=== PATIENT | male | born 1970 | race Caucasian/White ===

== ENCOUNTER 2018-02-22 08:12 | Emergency (ER) | payer OTHER ==
[2018-02-22] MEDS ORDERED: DIPHTH,PERTUSS(ACELL),TET 0.5 ML DISP.SYRIN IM ONE (08:16)
[2018-02-22] MEDS ORDERED: SODIUM BICARBONATE 2.4 MEQ/5 ML SDVIAL NR ONE (08:17)
[2018-02-22] MEDS ORDERED: SODIUM BICARBONATE 8.4% 50 MEQ/50 ML VIAL ONE (08:22)
[2018-02-22 08:38] VITALS: BP 125/88; PULSE 66; TEMP 98.5; BMI 25.6
--- NOTE | 2018-02-22 08:57 | PDOC ---
History of Present Illness - General Chief Complaint: Laceration Stated Complaint: LACERATION RIGHT ARM Time Seen by Provider: 02/22/18 08:16 History Source: Patient Exam Limitations: No Limitations - History of Present Illness Initial Comments: 02/22/18 08:52 CHIEF COMPLAINT: "I cut my right arm this morning." HISTORY OF PRESENT ILLNESS: 47-year-old man with no past medical history presents complaining of a laceration to the right dorsal forearm. He was at work this morning, working on an engine, and his right forearm got cut by a sharp metal edge of the engine. He immediately washed the wound with loss of running water. He applied a dressing and came to the emergency room for repair. The bleeding stopped easily. There is no numbness or weakness of the wrist or hand. There is no foreign body that could have entered the wound based upon the mechanism of injury. Immunizations: Last tetanus booster was many years ago, ate not recalled. REVIEW OF SYSTEMS: No fever or chills No other injuries No numbness or weakness of the arm, hand or wrist. Past History - Past Medical History Allergies/Adverse Reactions: Allergies Allergy/AdvReac Type Severity Reaction Status Date / Time No Known Allergies Allergy Verified 02/22/18 08:34 Home Medications: Ambulatory Orders NK [No Known Home Medication] 02/22/18 Asthma: No COPD: No Diabetes: No Other medical history: pt denies - Suicide/Smoking/Psychosocial Hx Smoking History: Never smoked Hx Alcohol Use: No Drug/Substance Use Hx: No Substance Use Type: None *Physical Exam - Vital Signs Last Vital Signs Temp Pulse Resp BP Pulse Ox 98.5 F 66 18 125/88 98 02/22/18 08:12 02/22/18 08:12 02/22/18 08:12 02/22/18 08:12 02/22/18 08:12 - Physical Exam Comments: 02/22/18 08:54 GENERAL: The patient is awake, alert, and fully oriented, in no acute distress. HEAD: Normal with no signs of trauma. EYES: Pupils equal, round and reactive to light, extraocular movements intact, sclera anicteric, conjunctiva clear. EXTREMITIES: The right arm has a laceration over the dorsal forearm. The laceration is 3 cm in length with no visible or palpable foreign body. Neurological: Sensation is intact throughout the right arm, hand, wrist, and fingers. Motor strength is intact with extension and flexion of the wrist and hand. Tendon strength is intact with all fingers and the wrist. NEUROLOGICAL: Normal speech, normal gait. PSYCH: Normal mood, normal affect. SKIN: No rash. Laceration 3 cm in length on the right dorsal forearm as noted above. Procedures - Laceration/Wound Repair Right Dorsal Arm Wound Length: 2.6 to 5.0 cm Wound Explored: clean, no foreign body present Wound's Depth, Shape: superficial, linear Irrigated w/ Saline: Yes Anesthesia: 1% Lidocaine Amount of Anesthetic (ccs): 5 Wound Repaired With: Sutures Suture Size/Type: 4:0 Number of Sutures: 5 Sterile Dressing Applied: Yes Progress: 02/22/18 08:56 Skin prepped with antiseptic. 1% lidocaine with sodium bicarbonate local infiltration 5 mL. Normal saline high pressure, high volume lavage to wound. 4-0 Ethilon suture, running, 5 sutures. Steri-Strips applied. Clean and dry sterile dressing applied. Patient advised regarding treatment and follow-up. Medical Decision Making - Medical Decision Making 02/22/18 08:57 47-year-old man with fresh laceration to the right forearm, clean and linear without foreign body. Wound cleansed and sutured and dressed. Tetanus booster updated with Boostrix. Patient advised to watch for signs of infection and to follow-up in 7-10 days for suture removal. *DC/Admit/Observation/Transfer Diagnosis at time of Disposition: Laceration of right forearm Qualifiers: Encounter type: initial encounter Qualified Code(s): S51.811A - Laceration without foreign body of right forearm, initial encounter Diagnosis at time of Disposition: (Ruled Out): Laceration of right upper arm - Discharge Dispostion Disposition: HOME Condition at time of disposition: Stable Decision to Admit order: No - Referrals Referrals: Nikita Leo [Non Staff, Medical] - 7 days - Patient Instructions Printed Discharge Instructions: DI for Laceration Repair Additional Instructions: You were evaluated today for a laceration to the right forearm. The wound was cleaned and sutures were applied. Keep the dressing intact for 48 hours. After 48 hours, remove the outer dressing but leave the white strips intact for 7 days. Cover the wound if you will be doing any work that could get the wound dirty. Otherwise leave the area open to air. The stitches and the white strips should be removed at 7-10 days. You may come to the emergency Department or see her primary care physician. Watch for any signs of infection such as redness, swelling, red streaks, pus, or fever. Get the wound checked immediately if there are signs of infection. - Post Discharge Activity
== END 2018-02-22 09:07 | disposition home or self-care (01) ==
LOC: FER 08:12
PROC: 0HQDXZZ Repair Right Lower Arm Skin, External Approach (ICD-10-PCS; principal; 2018-02-22)
PROC: 3E0234Z Introduction of Serum, Toxoid and Vaccine into Muscle, Percutaneous Approach (ICD-10-PCS; 2018-02-22)
DX: S51.811A Laceration without foreign body of right forearm, initial encounter (principal); W31.89XA Contact with other specified machinery, initial encounter; Y93.89 Activity, other specified; Y92.9 Unspecified place or not applicable; Y99.0 Civilian activity done for income or pay
CPT/HCPCS: 90715; 99282-25